=== PATIENT | female | born 1960 | race Caucasian/White ===

== ENCOUNTER 2017-11-17 13:53 | Inpatient (IN) | payer BC ==
[~2017-11-17] VITALS: Ht 165.1 cm; Wt 91.9 kg
[~2017-11-17 13:53] MED LIST: ASMANEX TW0.22 MG/A1 IH; ASPIRIN E.C. 8181 MG PO; ATIVAN0.5 MG PO; ATROVENT INHALE14 GM IH; CARDIZEM CD 24240 MG PO; CIPRO 500MG TA500 MG PO; COLACE 100100 MG/CAP PO; FLUTICASON0.05 MG/Ac NS; HCTZ 25MG25 MG PO; METHYLPHENIDATE PO; MUCINEX1200 MG PO; OMEPRAZOLE DR20 MG PO; PREMARIN V0.625 MG/G VG; PRISTIQ100 MG PO; PROVENTIL0.09 MG/A1 IH; SINGULAIR10 MG PO; SPIRIVA18 MCG IH; XYZAL5 MG PO
[2017-11-17 15:22] VITALS: BP 124/81; PULSE 106; TEMP 98
[2017-11-17 15:25] VITALS: BP 124/81; PULSE 106; TEMP 98
[2017-11-17] MEDS ORDERED: CARDIZEM120 MG PO (15:48)
[2017-11-17] MEDS ORDERED: COLACE 100100 MG/CAP (15:59)
[2017-11-17] MEDS ORDERED: ALEVE 220MG220 MG PO (16:02)
[2017-11-17] MEDS ORDERED: ALEVE PM PO (16:03)
[2017-11-17] MEDS ORDERED: KLONOPIN 0.5MG0.5 MG PO ×2 (16:04)
[2017-11-17] MEDS ORDERED: BENADRYL25 M2 PO (16:05)
[2017-11-17] MEDS ORDERED: L-LYSINE500 M1 PO (16:06)
[2017-11-17] MEDS ORDERED: MELATONIN3 M1 (16:07)
[2017-11-17] MEDS ORDERED: SINGULAIR 110 MG/TAB PO (16:08)
[2017-11-17] MEDS ORDERED: NITROSTAT0.4 MG/TAB SL (16:09)
[2017-11-17] MEDS ORDERED: MUCINEX1200 MG PO (16:09)
[2017-11-17] MEDS ORDERED: NORCO 325 MG-51 TAB PO (16:11)
[2017-11-17] MEDS ORDERED: REQUIP 0.5MG0.5 MG PO (16:19)
[2017-11-17] MEDS ORDERED: SENNA8.6 MG PO (16:19)
[2017-11-17] MEDS ORDERED: SYNTHROID 0.0.025 MG PO (16:20)
[2017-11-17] MEDS ORDERED: ULTRAM 50MG TAB50 MG PO (16:22)
[2017-11-17] MEDS ORDERED: NEURONTIN300 MG/CAP PO (16:39)
[2017-11-17] MEDS ORDERED: NEURONTIN600 MG/TAB PO (16:40)
[2017-11-17 18:38] VITALS: BP 108/64; PULSE 77; TEMP 99
[2017-11-17] MEDS ORDERED: ESTRACE 1MG1 MG/TAB PO (20:50)
[2017-11-17] MEDS ORDERED: VENTOLIN0.09 MG IH (20:53)
[2017-11-17 21:22] VITALS: BP 119/65; PULSE 86; TEMP 99.5
[2017-11-18] MEDS ORDERED: ALEVE LIQCAPS PO (00:50)
[2017-11-18] MEDS ORDERED: ALEVE PM PO (00:51)
[2017-11-18] MEDS ORDERED: VITAMIN D 1001000 IU (00:53)
[2017-11-18] MEDS ORDERED: VITAMIN B COMPL1 SGL PO (00:55)
[2017-11-18] MEDS ORDERED: THE MEDICINE S200 M2 PO (00:59)
[2017-11-18] MEDS ORDERED: MUCINEX1200 MG PO (01:02)
[2017-11-18] MEDS ORDERED: PROBIOTIC FORMU1 CAP PO (01:05)
[2017-11-18] MEDS ORDERED: SYNTHROID 0.0.025 MG PO (01:07)
[2017-11-18 01:12] VITALS: BP 107/68; PULSE 73; TEMP 98.7
[2017-11-18 04:11] VITALS: BP 99/67; PULSE 80; TEMP 98.4
[2017-11-18 06:56] LABS: BASO % 0.2 % (0.0-2.0); EOS % 0.4 % (0-4.0); GRAN # 4.2 (1.4-6.5); GRAN % 75.5 % (42.2-75.2); LYMPH # 0.8 (1.2-3.4); LYMPH % 14.4 % (20.0-51.0); MEAN CELL VOLUME 69 fl (80.0-100.0); MEAN CORPUSCULAR HGB CONC 32 g/dl (33.0-37.0); MONO # 0.5 (0.1-0.6); MONO % 9.1 % (1.7-9.3); PLATELET COUNT 135 K/mm3 (130-400); RED BLOOD COUNT 4.44 M/mm3 (4.10-5.30); REDCELL DISTRIBUTION WIDTH-CV 15.4 % (11.5-14.5)
[2017-11-18 07:16] LABS: CALCIUM 7.8 mg/dL (8.4-10.2); CREATININE, serum 0.63 mg/dL (0.52-1.25); POTASSIUM 3.3 mmol/L (3.4-5.0)
[2017-11-18 07:25] LABS: HEMATOCRIT 30.5 % (37.0-47.0); HEMOGLOBIN 9.7 g/dl (12.5-16.0); MEAN CORPUSCULAR HEMOGLOBIN 22 pg (27.0-31.0)
[2017-11-18 09:49] VITALS: BP 103/67; PULSE 75; TEMP 98.6
[2017-11-18 14:17] VITALS: BP 104/64; PULSE 70; TEMP 98.7
[2017-11-18 18:26] VITALS: BP 130/78; PULSE 89; TEMP 99.6
[2017-11-18 22:35] VITALS: BP 106/64; PULSE 71; TEMP 98.5
[2017-11-19 02:00] VITALS: BP 112/74; PULSE 68; TEMP 97.7
[2017-11-19 06:42] VITALS: BP 98/59; PULSE 64; TEMP 98.2
[2017-11-19 09:57] VITALS: BP 96/64; PULSE 60; TEMP 98.1
[2017-11-19 15:05] VITALS: BP 98/57; PULSE 73; TEMP 99.2
== END 2017-11-19 15:50 | disposition home or self-care (01) | DRG 390 ==
LOC: SURG 13:53
PROVIDERS: Surgery
PROC: 0D9670Z Drainage of Stomach with Drainage Device, Via Natural or Artificial Opening (ICD-10-PCS; principal; 2017-11-17)
DX: K56.50 Intestinal adhesions [bands], unspecified as to partial versus complete obstruction (principal); G25.81 Restless legs syndrome; K21.9 Gastro-esophageal reflux disease without esophagitis; E11.43 Type 2 diabetes mellitus with diabetic autonomic (poly)neuropathy; K31.84 Gastroparesis; F41.9 Anxiety disorder, unspecified; F32.9 Major depressive disorder, single episode, unspecified; G47.30 Sleep apnea, unspecified; J45.909 Unspecified asthma, uncomplicated
CPT/HCPCS: J1885; J2405; J7120